=== PATIENT | female | born 1975 | race Caucasian/White ===

== ENCOUNTER → 2021-08-14 | Outpatient (CLI) | payer MEDICARE ==
[2021-08-14 14:38] LABS: Partial Thromboplastin Time 24.6 sec (22.0-30.0)
[2021-08-14 14:53] LABS: Appearance,Urine Clear (Clear); Bilirubin,Urine Negative (Negative); Blood,Urine Negative (Negative); Color,Urine Light Yellow; Glucose,Urine (UA) Negative (Negative); Ketones,Urine Negative (Negative); Leukocyte Esterase,Urine Negative (Negative); Nitrite,Urine Negative (Negative); PH, Urine 6.5 (5.0-8.0); Protein,Urine Negative (Negative); Specific Gravity,Urine 1.006 (1.001-1.035); Urobilinogen,Urine <2.0 mg/dL (<2.0)
[2021-08-14 18:50] LABS: INR 0.9 (<1.2); Prothrombin Time 9.9 sec (9.0-12.0)
[2021-08-14 19:09] LABS: HCT 40.3 % (37.2-46.3); HGB 12.8 g/dL (12.0-15.0); MCH 28.1 pg (27.0-32.0); MCHC 31.8 g/dL (32.0-37.0); MCV 88.6 fL (80.0-97.0); Mean Platelet Volume 10.1 fL (9.5-12.2); NRBC Per 100 WBC 0 /100 WBCS (0.0-0.0); Platelet Count 305 X 10*3/uL (140-440); RBC 4.55 X 10*6/uL (4.10-5.20); RDW 13.3 % (11.5-14.5); WBC 5.23 X 10*3/uL (4.50-10.00)
[2021-08-14 19:23] LABS: African American GFR (CKD) 127.2 (60.0-200.0); Albumin 4.5 g/dL (3.8-4.9); Albumin/Globulin Ratio 1.93 (1.60-3.17); Anion Gap 14.9 mmol/L (10.00-18.00); Blood Urea Nitrogen 11.6 mg/dL (9.0-27.0); Calcium 9.9 mg/dL (8.7-10.3); Carbon Dioxide 27.6 mmol/L (20.0-27.5); Globulin 2.3 g/dL (1.6-3.3); Non-African American GFR(CKD) 109.8 (60.0-200.0); Potassium 3.8 mmol/L (3.5-5.5); Total Bilirubin 0.4 mg/dL (0.30-1.20); Total Protein 6.9 g/dL (6.2-8.2)
== END | disposition home or self-care (01) ==
LOC: LABPAT 13:06
PROVIDERS: ATTEND Orthopaedic Surgery
DX: Z01.818 Encounter for other preprocedural examination (principal); M17.11 Unilateral primary osteoarthritis, right knee; R94.31 Abnormal electrocardiogram [ECG] [EKG]
CPT/HCPCS: 80053; 81003; 85027; 85610; 85730; 87070; 93005

== ENCOUNTER 2021-08-22 09:46 | Observation (INO) | payer MEDICARE, OTHER ==
[2021-08-16 14:59] VITALS: BMI 56.1
[~2021-08-22 09:46] MED LIST: ACETAMINOPHEN TAB 500 MG TAB PO PRN; GABAPENTIN 300 MG CAP PO PRN; LIDOCAINE 1% (10MG/ML) FOR IV START INTRADERMA PRN; MELOXICAM 7.5 MG TAB PO PRN; ONDANSETRON 4 MG/2 ML VIAL IVP ONE; TRANEXAMIC ACID IN NACL,ISO-OS 1,000 MG in SALINE 1 100ML.BAG IVPB PRN; ceFAZolin 3 GM in SODIUM CHLORIDE 0.9% 100 ML IVPB PRN
[2021-08-22] MEDS ORDERED: MAGNESIUM HYDROXIDE 2,400 MG/10 ML CUP PO PRN (10:46)
[2021-08-22] MEDS ORDERED: HYDROmorphone 0.5 MG/0.5 ML SYRINGE IVP PRN (10:46)
[2021-08-22] MEDS ORDERED: NALOXONE 0.4 MG/ML 1 ML VIAL IV PRN (10:46)
[2021-08-22] MEDS ORDERED: NA PHOS,M-B/NA PHOS,DI-BA 133 ML ENEMA RECTAL PRN (10:46)
[2021-08-22] MEDS ORDERED: ONDANSETRON 4 MG/2 ML VIAL IVP PRN (10:46)
[2021-08-22] MEDS ORDERED: bisacodyL 10 MG SUPP RECTAL PRN (10:46)
[2021-08-22] MEDS: LACTATED RINGERS 1,000 ML IV SCH (11:00)
[2021-08-22] MEDS ORDERED: SODIUM CHLORIDE 0.9% 1,000 ML IV SCH (11:00)
[2021-08-22] MEDS ORDERED: fentaNYL (PF) 50 MCG/ML 2 ML AMP IV ONE (11:20)
[2021-08-22] MEDS ORDERED: MIDAZOLAM 2 MG/2 ML VIAL IV ONE (11:20)
[2021-08-22] MEDS ORDERED: SODIUM CHLORIDE 0.9% (PF) 10 ML VIAL ONE (11:41)
[2021-08-22] MEDS ORDERED: TRANEXAMIC ACID IN NACL,ISO-OS 1,000 MG/100 ML BAG ONE (11:41)
[2021-08-22] MEDS ORDERED: ROPIVACAINE 5 MG/ML 30 ML VIAL ONE (11:41)
[2021-08-22] MEDS ORDERED: fentaNYL (PF) 50 MCG/ML 2 ML AMP ONE (11:41)
[2021-08-22] MEDS ORDERED: MIDAZOLAM 2 MG/2 ML VIAL ONE (11:41)
[2021-08-22] MEDS ORDERED: GLYCOPYRROLATE 0.2 MG/ML 2 ML VIAL ONE (11:41)
[2021-08-22] MEDS ORDERED: PROPOFOL 10 MG/ML 20 ML VIAL IV ONE (11:41)
[2021-08-22] MEDS ORDERED: PHENYLEPHRINE-0.9% NACL SYG 1,000 MCG/10 ML SYRINGE ONE (11:41)
--- NOTE | 2021-08-22 12:15 | P.ANPRN ---
Procedure Note - Anesthesia - Nerve Block Performed Right Adductor Canal Infusion Time Out Performed: Yes (1120) Date of Procedure: 08/22/21 Procedure Start Time: 11: Procedure Stop Time: : Location of Patient: PreOp Indication: Acute Post-Operative Pain, Requested by Surgeon Specifically requested for management of pain by DrEmilio: Peter Bateman Sedation Type: Sedate with meaningful contact maintained Preparation: Sterile Prep, Sterile Dressing Position: Supine Catheter Depth at Skin (cm): 10 Catheter: None Needle Types: Pajunk Needle Gauge: Other (see comment) (16g) Ultrasound used to visualize needle placement: Yes Ultrasound used to observe medication spread: Yes Injectate: 0.5% Ropivacaine (see comment for volume) (15cc + 5 cc nacl) Blood Aspirated: No Pain Paresthesia on Injection Noted: No Resistance on Injection: Normal Image Stored and Saved: Yes Events: Uneventful and Well Tolerated
--- NOTE | 2021-08-22 12:16 | P.ANPRN ---
Procedure Note - Anesthesia - Nerve Block Performed Right iPack Single Time Out Performed: Yes (1120) Date of Procedure: 08/22/21 Procedure Start Time: Procedure Stop Time: Location of Patient: PreOp Indication: Acute Post-Operative Pain, Requested by Surgeon Specifically requested for management of pain by DrEmilio: Peter Bateman Sedation Type: Sedate with meaningful contact maintained Preparation: Sterile Prep Position: Supine Catheter: None Needle Types: Pajunk Needle Gauge: 21 Ultrasound used to visualize needle placement: Yes Ultrasound used to observe medication spread: Yes Injectate: 0.5% Ropivacaine (see comment for volume) (15cc + 5cc nacl) Blood Aspirated: No Pain Paresthesia on Injection Noted: No Resistance on Injection: Normal Image Stored and Saved: Yes Events: Uneventful and Well Tolerated
[2021-08-22] MEDS ORDERED: ceFAZolin 1,000 MG in SODIUM CHLORIDE 0.9% 1,000 ML IRRIGATION ONE (12:19)
--- NOTE | 2021-08-22 13:14 | P.OP ---
Date of Procedure: 08/22/21 Preoperative Diagnosis: Severe osteoarthritis right knee Postoperative Diagnosis: Severe osteoarthritis right knee Procedure(s) Performed: Right total knee arthroplasty Implants: [employer] Journey II CR Oxinium cruciate retaining femoral component size 4, right [employer] Journey nonporous tibial baseplate size 2, right [employer] Journey II, XLPE CR articular insert, size 9 mm, Size 1-2, right [employer] Journey [place] II resurfacing patellar component, oval, 29 mm All components were cemented using Palacos R bone cement The articulation is Oxinium on polyethylene Anesthesia: spinal Surgeon: Peter Bateman Bushing And Broach Operator #1: Latonya Orozco Estimated Blood Loss (ml): 30 Pathology: other (Bone and cartilage) Condition: stable Disposition: PACU Indications for Procedure: After failure of conservative treatment we discussed the surgical and nonsurgical treatment options at length. Patient wishes to proceed with a total knee arthroplasty. Complications specific to this procedure were discussed at length, including but not limited to infection, bleeding, stiffness, and nerve injury. Covid-19 was also discussed at length with the patient, and they are aware of the current policies and procedures. The patient was given the option of delaying surgery, but they elect to proceed knowing these risks. Patient is aware of all these complications and informed consent was obtained Operative Findings: The operative findings are consistent with severe osteoarthritis of the right knee Description of Procedure: Patient was seen in the preoperative area and the consent was reviewed and the operative site was marked with a skin marker. The patient verified the procedure and the operative site. An adductor canal pain catheter and an iPACK block was placed by anesthesia in the preoperative area. The patient was then brought to the operating room and given preoperative antibiotics intravenously. A gram of transexamic acid was given intravenously. A spinal anesthetic was administered by the anesthesia department. A tourniquet was placed on the upper thigh and the lower extremity was prepped with chlorhexidine and draped in usual sterile fashion. A universal timeout was then performed which confirmed the patient's name, surgical site, ALLERGIES, and consent. The lower extremity was then exsanguinated and tourniquet was inflated to 250 mmHg. A standard anterior midline approach to the knee was performed. The skin and subcutaneous tissue were sharply dissected down to the patellar tendon. A medial parapatellar arthrotomy was then performed. The knee was then extended, the patellar was everted, and the knee was again flexed. The infra-patellar fat pad was removed in order to enhance exposure. The anterior horns of both menisci were excised, and a release was performed to the posterior medial aspect of the knee. On gross visual inspection, there was complete loss of articular cartilage in the medial and patellofemoral joint spaces. There was also significant cartilage damage in the lateral compartment. There were multiple periarticular osteophytes globally about the knee which were then removed with a Ronguer. The femoral canal was then opened with the 9.5 mm intramedullary drill. The 8 mm intramedullary yoana was then inserted into the femoral canal with the distal femoral cutting guide set for 5 of valgus. The distal femoral cutting block was then pinned in place. The intramedullary yoana was then removed, and the distal femur was then cut. The cutting block was then removed and the cut was checked for symmetry. The resected bone was then measured to confirm the appropriate distal femoral resection. Next, the sizing guide was then placed and set for 3 external rotation based off of the epicondylar axis and Whitesides line. Pins were then placed and the drill holes, and the femur was sized with the sizing stylus. The pins were then removed, and the sizing guide was then removed. The spikes of the femoral block was then placed into the predrilled holes, and malleted into place. Two 45 mm pins were then placed into the fixation holes on the cutting block. An brock wing was then used to ensure there would be no notching with the anterior cut. The anterior condyles were cut without notching. The anterior chord cut was then performed, followed by the posterior cut, posterior chamfer cut, and the anterior chamfer cut. The collateral ligaments were protected during the entire process. The cutting block was then removed. Any remaining bone and osteophytes were removed from the femur with a Ronguer. The femoral canal was plugged with autologous bone. Attention was then directed to the tibia. The remaining ACL was removed with a Ronguer, and the tibia was then gently subluxed forward with a large bent knee retractor. Any remaining menisci were excised. The posterior lateral corner was cauterized in order to coagulate the lateral geniculate artery. The extra medullary tibial cutting guide was then placed, set for the appropriate rotation, slope, and depth of resection. The proximal tibia cutting guide was then pinned in place. Proximal tibia was then cut and sized. The femoral trial was placed. A narrow saw blade was then used to remove the anterior intracondylar femoral bone. The CR notch trial was then placed. The tibial trial was placed with the appropriate-sized insert. The knee was able to fully extend and flex to 130 and was stable throughout all range of motion. The knee was then extended and the patella was everted. Patella was then measured, and then using an osteotomy guide, the patella was cut at the appropriate level. The patella was then measured and drilled and the patella trial was then placed. The knee was then taken through range of motion with the patella trial and the patella tracked normally using the no thumbs technique. The knee was then extended patella trial was then removed and the patella was everted. Knee was then flexed and lug holes were drilled through the femoral trial and the femoral trial was then removed. The tibial was then re-exposed, and the tibial broach guide was then pinned in place after it was set for the appropriate rotation to allow for the most coverage without overhang. The tibia was then reamed and broached. The cut surfaces of bone were then irrigated with pulsatile lavage. The knee was also irrigated with Irrisept solution. The components were then opened, the cement was mixed, and the components were then cemented in place. The cement was allowed to harden with the knee in full extension. After the cemented hardened, the tourniquet was released and hemostasis was obtained. A second gram of transexamic acid was given intravenously. The knee was again irrigated. The knee was again taken through range of motion and found to be stable throughout all range of motion of 0-130, and the patella tracked normally. The fascia was then closed with 0 Vicryl followed by #2 strata fix suture. The subcutaneous tissue was closed with 3-0 Vicryl and 3-0 strata fix. Exofin glue was used for the skin and placed with the knee in flexion. After the glue had dried, and Optafoam silver impregnated dressing was applied. The patient was then transferred to recovery room in stable condition. The insurance legal assistant ALISA Balderas was required due the complexity surgery and the need for a skilled surgical aides teacher. She assisted in positioning, draping, retraction, and closure of the wound.
[2021-08-22] MEDS ORDERED: ROPIVACAINE 0.2%-NS ON-Q PUMP 1,090 MG, EMPTY PAIN BALL 1 EACH MISCELLANE PRN (13:53)
[2021-08-22] MEDS: HYDROmorphone 0.5 MG/0.5 ML SYRINGE IVP PRN ×4 (14:02→18:52)
--- NOTE | 2021-08-22 14:58 | XR ---
EXAMINATION TYPE: XR knee limited RT DATE OF EXAM: 08/22/2021 COMPARISON: NONE TECHNIQUE: Two views submitted HISTORY: Post op FINDINGS: There is a prosthetic knee in near anatomic alignment. There is soft tissue edema and emphysema. IMPRESSION: 1. Postoperative change. Appears in near-anatomic alignment
[2021-08-22] MEDS: HYDROcodone/APAP 7.5-325MG 1 EACH TAB PO PRN ×2 (15:43→20:57)
--- NOTE | 2021-08-22 16:32 | P.CONS ---
History of Present Illness - Reason for Consult Consult date: 08/22/21 - History of Present Illness History of Presenting Illness: Patient is a very pleasant 46-year-old female with a past medical history of hypertension, neuropathy, severe asthma home oxygen dependent on 2 L with any exertion, history of lung cancer in a nonsmoker resulting in thoracotomy with left lower lobectomy now in remission, Raynaud's disease, and osteoarthritis. Patient is currently admitted under orthopedic surgery team and is status post right total knee arthroplasty completed by Dr. Bateman. We have been consulted for continued medical management throughout hospitalization. Upon assessment patient resting comfortably. Monitor revealing hypoxia with oxygen saturations around 85-88%. Patient reports home oxygen use only with exertion. She was placed on oxygen and increasing SpO2 greater than 90%. Patient is tolerating clear liquid diet and denies having any postoperative nausea or vomiting. Patient denies having any headache, lightheadedness, dizziness, chest pain, palpitations, shortness of breath, abdominal pain, nausea, vomiting, or experiencing any numbness/tingling/weakness in her extremities. She has not urinated in postoperative period as of yet, but is drinking clear liquids. Review of systems: Pertinent positives and negatives as discussed in HPI, a complete review of systems was performed and all other systems are negative. Physical exam: Vital signs reviewed and stable. General: Nontoxic, no distress and appears stated age. Derm: Skin warm and dry, normal coloration for ethnicity. Head: Atraumatic, normocephalic and symmetric. Eyes: EOMs intact, no lid lag, and anicteric sclera Mouth: no lip lesions, mucus membranes moist Cardiovascular: regular rate and rhythm with normal S1S2, no murmur, positive posterior tibial pulses bilaterally, and cap refill < 2 seconds. Lungs: Respirations even, regular, and unlabored on room air. Lungs CTA with the exception of diminished lung sounds to left mid and lower lung, no rhonchi, no rales, no wheezing, and no accessory muscle usage. Patient was found to have postoperative hypoxia with oxygen saturations dipping down to 85%. Patient placed on oxygen at this time increasing SpO2 greater than 92%. Abdominal: soft, nontender to palpation, no guarding, no appreciable organomegaly Ext: No gross muscle atrophy, no edema, no contractures. Postoperative dressing and ice pack in place to right knee, movement and sensation intact distally. Neuro: Speech clear, face symmetrical and CN II-XII grossly intact with no noted focal neuro deficits Psych: Alert and oriented to person, place, time, and situation. Appropriate and pleasant affect. Assessment and Plan of Care: Postoperative hypoxia requiring oxygen supplementation Severe asthma, not in exacerbation but home oxygen dependent on 2 L with exertion History of lung cancer and a nonsmoker status post left lower lobectomy -Oxygenation to be administered and titrated as needed to maintain SPO2 equal to or greater than 92% -Telemetry monitoring. -Monitor Pulse-oximetry -Duonebs as needed for SOB and/or wheezing -Incentive Spirometry, encourage use 10-15 times hourly while awake. Status post right total knee arthroplasty -Surgical procedure completed by Dr. Bateman on 08/22/21. -Management per primary admitting orthopedic surgery team including DVT prophylaxis, pain management, incisional care, weightbearing, and PT/OT. -Patient currently on DVT prophylaxis with aspirin 325 mg twice daily. -Encourage incentive spirometry Hypertension -Monitor vital signs and continue daily medication regimen with hydrochlorothiazide and metoprolol. Neuropathy -Continue daily medication regimen with Neurontin 600 mg twice a day. Raynaud's disease -Symptomatic and supportive care, warm blankets as needed. Thank you for allowing us to participate in the care of this pleasant patient. Do not hesitate to contact us with questions. Someone can be reached from the [facility] hospitalist group all hours of the day at [phone] or via [email or web address]. Past Medical History Past Medical History: Asthma, Cancer, Hypertension, Osteoarthritis (OA) Additional Past Medical History / Comment(s): hx migraines as child, sciatica, Raynaud's, heart murmer, "congestive heart", "mild leaky valve", left lower lung cancer- had chemo and radiation 01/2016-07/2016,-then got infection in chemo port-not sure what organism, hx skin cancer History of Any Multi-Drug Resistant Organisms: None Reported Past Surgical History: Section, Hernia Repair, Hysterectomy, Orthopedic Surgery, Tonsillectomy Additional Past Surgical History / Comment(s): hiatal hernia repair, left lower lobe of lung removed, bunionectomy left foot, tendon repair rt foot, C/S x 2, umbilcal hernia repair, hiatal hernia repair(thoracotomy), cyst removed from hands, left knee arthroscopy. Past Anesthesia/Blood Transfusion Reactions: No Reported Reaction Smoking Status: Never smoker - Past Family History Mother Family Medical History: Cancer Additional Family Medical History / Comment(s): melanoma Father Family Medical History: Cancer Additional Family Medical History / Comment(s): skin cancer Medications and Allergies Home Medications Medication Instructions Recorded Confirmed Type Gabapentin [Neurontin] 600 mg PO BID 03/17/14 08/16/21 History Montelukast [Singulair] 10 mg PO DAILY 03/17/14 08/16/21 History Acetaminophen [Tylenol 8 Hour] 1,950 mg PO TID 08/16/21 08/16/21 History Albuterol Inhaler [Ventolin Hfa 1 puff INHALATION DIRECTED PRN 08/16/21 08/16/21 History Inhaler] Albuterol Nebulized [Ventolin 2.5 mg INHALATION DIRECTED PRN 08/16/21 08/16/21 History Nebulized] Lidocaine Patch 1 patch TOPICAL DAILY 08/16/21 08/16/21 History Metoprolol Succinate [Toprol XL] 25 mg PO BID 08/16/21 08/16/21 History guaiFENesin [Mucinex] 600 mg PO HS 08/16/21 08/16/21 History hydroCHLOROthiazide [Hydrodiuril] 25 mg PO DAILY 08/16/21 08/16/21 History Aspirin 325 mg PO BID #60 tab 08/22/21 Rx HYDROcodone/APAP 7.5-325MG [[place] 1 - 2 tab PO Q6H PRN #32 tab 08/22/21 Rx 7.5-325] Ondansetron Odt [Zofran Odt] 1 tab PO Q8HR PRN #10 tab 08/22/21 Rx Sennosides [Senokot] 2 tab PO DAILY PRN #60 tablet 08/22/21 Rx Allergies Allergy/AdvReac Type Severity Reaction Status Date / Time ciprofloxacin [From Cipro] AdvReac severe Verified 08/16/21 14:37 muscle cramps,"paralyzed me" ciprofloxacin HCl AdvReac severe Verified 08/16/21 14:37 [From Cipro] muscle cramps"paralyzed me" iodine with tegaderm Allergy blisters Uncoded 08/16/21 15:00 Physical Exam Vitals: Vital Signs Temp Pulse Pulse Resp BP Pulse Ox 08/22/21 14:15 66 16 103/70 93 L 08/22/21 14:04 67 16 110/61 95 08/22/21 13:41 96.7 F L 77 20 109/68 100 08/22/21 11:35 72 16 127/78 100 08/22/21 10:29 97.2 F L 76 16 140/88 96 Intake and Output 08/22/21 08/22/21 08/22/21 06:59 14:59 22:59 Intake Total 701 100 Output Total 30 Balance 671 100 Intake: IV 701 100 Output: Estimated Blood Loss 30 Other: Weight 139.8 kg
[2021-08-22] MEDS: HYDROmorphone 1 MG/ML 1 ML SYRINGE IVP PRN ×2 (16:33→22:20)
[2021-08-22] MEDS: ASPIRIN 325 MG TAB PO SCH (20:56)
[2021-08-22] MEDS: GABAPENTIN 300 MG CAP PO SCH (20:56)
[2021-08-22] MEDS: ceFAZolin 3 GM in SODIUM CHLORIDE 0.9% 100 ML IVPB SCH (20:56)
[2021-08-22] MEDS: SENNOSIDES-DOCUSATE SODIUM 1 EACH TAB PO SCH (20:57)
[2021-08-22] MEDS: METOPROLOL SUCCINATE (ER) 25 MG TAB.ER.24H PO SCH (20:57)
[2021-08-22] MEDS: guaiFENesin 600 MG TABLET.ER PO SCH (20:57)
[2021-08-22] MEDS: ALBUTEROL NEBULIZED 2.5 MG/3 ML INHALATION PRN (23:47)
[2021-08-23] MEDS: HYDROcodone/APAP 7.5-325MG 1 EACH TAB PO PRN ×4 (01:30→20:05)
[2021-08-23] MEDS: HYDROmorphone 0.5 MG/0.5 ML SYRINGE IVP PRN (03:41)
[2021-08-23] MEDS ORDERED: PREGABALIN 100 MG CAP PO STA (03:56)
[2021-08-23] MEDS: ceFAZolin 3 GM in SODIUM CHLORIDE 0.9% 100 ML IVPB SCH (04:11)
[2021-08-23] MEDS: HYDROmorphone 1 MG/ML 1 ML SYRINGE IVP PRN ×4 (06:21→20:08)
[2021-08-23] MEDS: LACTATED RINGERS 1,000 ML IV SCH (07:38)
[2021-08-23] MEDS: METOPROLOL SUCCINATE (ER) 25 MG TAB.ER.24H PO SCH ×2 (07:44→20:05)
[2021-08-23] MEDS: GABAPENTIN 300 MG CAP PO SCH ×2 (07:44→20:04)
[2021-08-23] MEDS: ASPIRIN 325 MG TAB PO SCH ×2 (07:44→20:04)
[2021-08-23] MEDS: MONTELUKAST 10 MG TAB PO SCH (07:45)
--- NOTE | 2021-08-23 07:47 | P.PN ---
Subjective Progress Note Date: 08/23/21 Principal diagnosis: Primary osteoarthritis right knee. Status post total right knee arthroplasty. This is a 46-year-old female who is status post total right knee arthroplasty. Today is postoperative day #1. The patient is having issues with pain management. She is very weepy today on exam. She is complaining of right buttock and thigh pain. Vital signs and labs are stable. Objective - Vital Signs Vital signs: Vital Signs Temp 99.4 F 08/23/21 01:25 Pulse 87 08/23/21 01:25 Resp 18 08/23/21 01:25 BP 105/74 08/23/21 01:25 Pulse Ox 100 08/23/21 01:25 Intake & Output 08/22/21 08/23/21 08/23/21 18:59 06:59 18:59 Intake Total 801 Output Total 30 Balance 771 Weight 139.8 kg Intake: IV 801 Output: Estimated Blood Loss 30 Other: Voiding Method Toilet # Voids 2 # Bowel Movements 0 - Exam This is a 46-year-old female in no acute distress. She is slightly distraught over pain management issues. Exam of the right knee reveals that her dressing is clean, dry and intact. She has full foot and ankle motion without difficulty or pain. Neurovascular status to the lower extremity is intact. Assessment and Plan (1) Primary localized osteoarthritis of right knee Current Visit: Yes Status: Acute Code(s): M17.11 - UNILATERAL PRIMARY OSTEOARTHRITIS, RIGHT KNEE SNOMED Code(s): 422437641099528 (2) Status post total right knee replacement Current Visit: Yes Status: Acute Code(s): Z96.651 - PRESENCE OF RIGHT ARTIFICIAL KNEE JOINT SNOMED Code(s): 6234771468146 Plan: The clinical findings are discussed with the patient. We had a discussion regarding pain and expectations after knee replacement surgery. She is assured that pain is very common after knee surgery. She may also be having some radicular symptoms from her low back. We will see how she does with physical therapy today and plan discharge accordingly.
[2021-08-23] MEDS: hydroCHLOROthiazide 25 MG TAB PO SCH (07:48)
--- NOTE | 2021-08-23 09:45 | P.PN ---
Progress Note - Text Progress Note Date: 08/23/21 Patient was seen and evaluated at bedside. Status post postoperative day 1 for right total knee arthroplasty patient had adductor canal catheter for postop pain control. Patient rated pain at rest 5 out of 10 in severity. Patient describes pain is aching, throbbing type on the sides of the knee and back of the knee. Patient started walking with support. With activity patient pain levels are 6- 8 out of 10 in severity. With the help of oral pain medications pain levels are tolerable. Patient denied any weakness/ numbness in lower extremities. patient denied any fever, pain over the catheter site. Physical exam: Patient vital signs stable Patient is alert awake oriented 3 responding to all questions appropriately Examination of the catheter site showed dressing intact, no leaking fluid around the catheter, no redness, no tenderness over the catheter insertion area. plan: status post postoperative day 1 for right total knee arthroplasty with adductor canal catheter for pain control. Patient was discussed to continue the medication at the rate of 8 mL per hour until the pump is completely empty and instructed the patient how to discontinue the catheter
[2021-08-23 10:12] LABS: Basophils # (A) 0.02 X 10*3/uL (0.00-0.10); Basophils % (A) 0.3 %; Eosinophils # (A) 0.06 X 10*3/uL (0.04-0.35); HCT 35.2 % (37.2-46.3); Immature Grans, Automated 0.6 %; Lymphocytes # (A) 0.74 X 10*3/uL (0.90-5.00); Lymphocytes % (A) 11.9 %; MCH 27.9 pg (27.0-32.0); MCHC 31.3 g/dL (32.0-37.0); MCV 89.3 fL (80.0-97.0); Mean Platelet Volume 9.7 fL (9.5-12.2); Monocytes # (A) 0.66 X 10*3/uL (0.20-1.00); Monocytes % (A) 10.6 %; NRBC Per 100 WBC 0 /100 WBCS (0.0-0.0); Neutrophils % (A) 75.6 %; Platelet Count 259 X 10*3/uL (140-440); RBC 3.94 X 10*6/uL (4.10-5.20); RDW 13.3 % (11.5-14.5); WBC 6.22 X 10*3/uL (4.50-10.00)
[2021-08-23 10:36] LABS: Magnesium 1.9 mg/dL (1.5-2.4)
[2021-08-23 10:55] LABS: Albumin/Globulin Ratio 1.94 (1.60-3.17); Anion Gap 12.4 mmol/L (10.00-18.00); BUN/Creat Ratio 17.97 Ratio (12.00-20.00); Blood Urea Nitrogen 12.9 mg/dL (9.0-27.0); Calcium 8.8 mg/dL (8.7-10.3); Carbon Dioxide 22.5 mmol/L (20.0-27.5); Non-African American GFR(CKD) 100.1 (60.0-200.0); Potassium 3.9 mmol/L (3.5-5.5); Total Bilirubin 0.5 mg/dL (0.30-1.20)
[2021-08-23] MEDS ORDERED: ORPHENADRINE 30 MG/ML 2 ML VIAL IM STA (11:03)
--- NOTE | 2021-08-23 11:03 | P.PN ---
Subjective Progress Note Date: 08/23/21 Hospital course: Patient is a very pleasant 46-year-old female with a past medical history of hypertension, neuropathy, severe asthma home oxygen dependent on 2 L with any exertion, history of lung cancer in a nonsmoker resulting in thoracotomy with left lower lobectomy now in remission, Raynaud's disease, and osteoarthritis. Patient is currently admitted under orthopedic surgery team and is status post right total knee arthroplasty completed by Dr. Bateman. We have been consulted for continued medical management throughout hospitalization. Physical exam: Patient seen and fully evaluated at the bedside this morning. She reports uncontrolled pain in right gluteal region radiating laterally down hip and then down into anterior thigh ending just above the incision site. Patient is taking Neurontin 600 mg twice a day along with pain medication. Will administer a 1 time dose of Norflex and place order for K pad. Morning labs reviewed revealing expected mild postoperative blood loss anemia with hemoglobin stable at 11.0 and mild hyponatremia with sodium of 133 and patient tolerating oral intake will encourage oral hydration. Patient remains on 2 L O2 via nasal cannula with SpO2 of 94%. Incentive spirometry at bedside and patient encouraged to use 10-15 times hourly while awake. Patient denies having any headache, lightheadedness, dizziness, chest pain, palpitations, shortness of breath, nausea, or vomiting. Sensation and movement intact in right lower extremity. Vital signs reviewed and stable. General: Nontoxic, no distress and appears stated age. Derm: Skin warm and dry, normal coloration for ethnicity. Head: Atraumatic, normocephalic and symmetric. Eyes: EOMs intact, no lid lag, and anicteric sclera Mouth: no lip lesions, mucus membranes moist Cardiovascular: regular rate and rhythm with normal S1S2, no murmur, positive posterior tibial pulses bilaterally, and cap refill < 2 seconds. Lungs: Respirations even, regular, and unlabored on 2 L O2 with SpO2 of 94%. Lungs CTA with the exception of diminished lung sounds to left mid and lower lung, no rhonchi, no rales, no wheezing, and no accessory muscle usage. Abdominal: soft, nontender to palpation, no guarding, no appreciable organomegaly Ext: No gross muscle atrophy, no edema, no contractures. Postoperative dressing and ice pack in place to right knee, movement and sensation intact distally. Neuro: Speech clear, face symmetrical and CN II-XII grossly intact with no noted focal neuro deficits Psych: Alert and oriented to person, place, time, and situation. Appropriate and pleasant affect. Assessment and Plan of Care: Postoperative hypoxia requiring oxygen supplementation Acute postsurgical blood loss anemia, expected finding and stable with hemoglobin 11.0. Severe asthma, not in exacerbation but home oxygen dependent on 2 L with exert ion History of lung cancer and a nonsmoker status post left lower lobectomy -Oxygenation to be administered and titrated as needed to maintain SPO2 equal to or greater than 92% -Telemetry monitoring. -Monitor Pulse-oximetry -Duonebs as needed for SOB and/or wheezing -Incentive Spirometry, encourage use 10-15 times hourly while awake. Status post right total knee arthroplasty -Surgical procedure completed by Dr. Bateman on 08/22/21. -Management per primary admitting orthopedic surgery team including DVT prophylaxis, pain management, incisional care, weightbearing, and PT/OT. -Patient currently on DVT prophylaxis with aspirin 325 mg twice daily. -Encourage incentive spirometry Hypertension -Monitor vital signs and continue daily medication regimen with hydrochlorothiazide and metoprolol. Neuropathy -Continue daily medication regimen with Neurontin 600 mg twice a day. Raynaud's disease -Symptomatic and supportive care, warm blankets as needed. Thank you for allowing us to participate in the care of this pleasant patient. Do not hesitate to contact us with questions. Someone can be reached from the [facility] hospitalist group all hours of the day at [phone] or via [employer]. Objective - Vital Signs Vital signs: Vital Signs Temp 98.2 F 08/23/21 08:00 Pulse 91 08/23/21 08:00 Resp 18 08/23/21 08:00 BP 96/61 08/23/21 08:00 Pulse Ox 94 L 08/23/21 08:00 Intake & Output 08/22/21 08/23/21 08/23/21 18:59 06:59 18:59 Intake Total 801 Output Total 30 Balance 771 Weight 139.8 kg Intake: IV 801 Output: Estimated Blood Loss 30 Other: Voiding Method Toilet Toilet # Voids 2 # Bowel Movements 0 - Labs CBC & Chem 7: 08/23/21 08:01 08/23/21 07:05 Labs: Abnormal Lab Results - Last 24 Hours (Table) 08/23/21 08/23/21 Range/Units 07:05 08:01 RBC 3.94 L (4.10-5.20) X 10*6/uL Hgb 11.0 L (12.0-15.0) g/dL Hct 35.2 L (37.2-46.3) % MCHC 31.3 L (32.0-37.0) g/dL Lymphocytes # 0.74 L (0.90-5.00) X 10*3/uL Sodium 133 L (135-145) mmol/L Glucose 112 H (70-110) mg/dL Total Protein 6.0 L (6.2-8.2) g/dL
[2021-08-23] MEDS: hydrOXYzine pamoate 25 MG CAP PO PRN ×2 (12:45→20:05)
[2021-08-23] MEDS: SENNOSIDES-DOCUSATE SODIUM 1 EACH TAB PO SCH (20:04)
[2021-08-23] MEDS: guaiFENesin 600 MG TABLET.ER PO SCH (20:04)
[2021-08-23] MEDS: ALBUTEROL NEBULIZED 2.5 MG/3 ML INHALATION PRN (20:43)
[2021-08-24] MEDS: HYDROmorphone 1 MG/ML 1 ML SYRINGE IVP PRN ×3 (02:18→16:57)
[2021-08-24] MEDS: HYDROcodone/APAP 7.5-325MG 1 EACH TAB PO PRN ×3 (02:19→12:46)
[2021-08-24] MEDS: hydroCHLOROthiazide 25 MG TAB PO SCH (07:44)
[2021-08-24] MEDS: METOPROLOL SUCCINATE (ER) 25 MG TAB.ER.24H PO SCH ×2 (07:44→20:34)
[2021-08-24] MEDS: ASPIRIN 325 MG TAB PO SCH ×2 (07:44→20:34)
[2021-08-24] MEDS: MONTELUKAST 10 MG TAB PO SCH (07:44)
[2021-08-24] MEDS: GABAPENTIN 300 MG CAP PO SCH ×2 (07:45→20:32)
[2021-08-24] MEDS: ALBUTEROL NEBULIZED 2.5 MG/3 ML INHALATION PRN ×2 (09:00→16:09)
[2021-08-24] MEDS: LACTATED RINGERS 1,000 ML IV SCH (10:39)
[2021-08-24] MEDS ORDERED: DIAZEPAM 5 MG/ML 2 ML INJ IVP PRN (11:35)
--- NOTE | 2021-08-24 11:39 | P.PN ---
Subjective Progress Note Date: 08/24/21 This is a 46-year-old female who is status post right total knee arthroplasty. This is postoperative day #2 and patient is seen and evaluated at bedside today. Patient complains of pain in the right knee along with sciatic nerve pain. Patient states that she has had symptoms of sciatica in the past. Patient states that she has been able to get up and walk, but this is difficult because of the pain. Objective - Vital Signs Vital signs: Vital Signs Temp 98.2 F 08/24/21 07:28 Pulse 80 08/24/21 09:15 Resp 24 08/24/21 07:28 BP 112/73 08/24/21 07:28 Pulse Ox 97 08/24/21 07:28 Intake & Output 08/23/21 08/24/21 08/24/21 18:59 06:59 18:59 Intake Total 400 Output Total 600 Balance -200 Intake: Oral 400 Output: Urine 600 Other: Voiding Method Toilet Toilet Toilet # Voids 4 # Bowel Movements 0 - Exam Vital signs are stable. Patient is in no acute distress and is alert and orient ed 3. Calf is soft and nontender to palpation. Dressing is clean, dry, and intact. Patient has full foot and ankle motion without pain or difficulty. Sensation intact. Neurovascular status and circulatory status are intact. - Labs CBC & Chem 7: 08/23/21 08:01 08/23/21 07:05 Assessment and Plan (1) Primary localized osteoarthritis of right knee Current Visit: Yes Status: Acute Code(s): M17.11 - UNILATERAL PRIMARY OSTEOARTHRITIS, RIGHT KNEE SNOMED Code(s): 992519397508138 (2) Status post total right knee replacement Current Visit: Yes Status: Acute Code(s): Z96.651 - PRESENCE OF RIGHT ARTIFICIAL KNEE JOINT SNOMED Code(s): 3598365229453 Plan: #1 Continue with routine postoperative care and pain control, leave dressing in place for seven days. #2 Anticoagulation with aspirin. #3 Physical therapy and CPM today. #4 Appreciate input from medicine. #5 Anticipate discharge home with home care likely tomorrow.
[2021-08-24] MEDS ORDERED: ORPHENADRINE 30 MG/ML 2 ML VIAL IVP STA (12:32)
--- NOTE | 2021-08-24 15:49 | P.PN ---
Subjective Progress Note Date: 08/24/21 Hospital course: Patient is a very pleasant 46-year-old female with a past medical history of hypertension, neuropathy, severe asthma home oxygen dependent on 2 L with any exertion, history of lung cancer in a nonsmoker resulting in thoracotomy with left lower lobectomy now in remission, Raynaud's disease, and osteoarthritis. Patient is currently admitted under orthopedic surgery team and is status post right total knee arthroplasty completed by Dr. Bateman. We have been consulted for continued medical management throughout hospitalization. Physical exam: Patient seen and fully evaluated at the bedside this morning. Today patient is postop day 2. She reports continued shooting pain in right gluteal region radiating laterally down hip and then down into anterior thigh ending just above the incision site and request an additional dose of Norflex. Order placed. Patient does report K pad is significantly helping. Medically, patient is stable for discharge Pending clearance from orthopedic surgery team. Patient has been maintaining SpO2 of 97% on 2 L and 95% on room air. Patient is tolerating oral intake. No acute distress noted. Incentive spirometry at bedside and patient encouraged to use 10-15 times hourly while awake. Patient denies having any headache, lightheadedness, dizziness, chest pain, palpitations, shortness of breath, nausea, or vomiting. Sensation and movement remains intact in right lower extremity. Patient medically cleared for discharge once cleared by primary orthopedic surgery team. Vital signs reviewed and stable. General: Nontoxic, no distress and appears stated age. Derm: Skin warm and dry, normal coloration for ethnicity. Head: Atraumatic, normocephalic and symmetric. Eyes: EOMs intact, no lid lag, and anicteric sclera Mouth: no lip lesions, mucus membranes moist Cardiovascular: regular rate and rhythm with normal S1S2, no murmur, positive posterior tibial pulses bilaterally, and cap refill < 2 seconds. Lungs: Respirations even, regular, and unlabored on 2 L O2 with SpO2 of 94%. Lungs CTA with the exception of diminished lung sounds to left mid and lower lung, no rhonchi, no rales, no wheezing, and no accessory muscle usage. Abdominal: soft, nontender to palpation, no guarding, no appreciable organomegaly Ext: No gross muscle atrophy, no edema, no contractures. Postoperative dressing and ice pack in place to right knee, movement and sensation intact distally. Neuro: Speech clear, face symmetrical and CN II-XII grossly intact with no noted focal neuro deficits Psych: Alert and oriented to person, place, time, and situation. Appropriate and pleasant affect. Assessment and Plan of Care: Postoperative hypoxia requiring oxygen supplementation Acute postsurgical blood loss anemia, expected finding and stable with hemoglobin 11.0. Severe asthma, not in exacerbation but home oxygen dependent on 2 L with exertion History of lung cancer and a nonsmoker status post left lower lobectomy -Oxygenation to be administered and titrated as needed to maintain SPO2 equal to or greater than 92% -Telemetry monitoring. -Monitor Pulse-oximetry -Duonebs as needed for SOB and/or wheezing -Incentive Spirometry, encourage use 10-15 times hourly while awake. Status post right total knee arthroplasty -Surgical procedure completed by Dr. Bateman on 08/22/21. -Management per primary admitting orthopedic surgery team including DVT prophylaxis, pain management, incisional care, weightbearing, and PT/OT. -Patient currently on DVT prophylaxis with aspirin 325 mg twice daily. -Encourage incentive spirometry Hypertension -Monitor vital signs and continue daily medication regimen with hydrochlorothiazide and metoprolol. Neuropathy -Continue daily medication regimen with Neurontin 600 mg twice a day. Raynaud's disease -Symptomatic and supportive care, warm blankets as needed. Thank you for allowing us to participate in the care of this pleasant patient. Do not hesitate to contact us with questions. Someone can be reached from the [facility] hospitalist group all hours of the day at [phone] or via [employer]PT[employer] serve. Objective - Vital Signs Vital signs: Vital Signs Temp 98.2 F 08/24/21 07:28 Pulse 79 08/24/21 07:28 Resp 24 08/24/21 07:28 BP 112/73 08/24/21 07:28 Pulse Ox 97 08/24/21 07:28 Intake & Output 08/23/21 08/24/21 08/24/21 18:59 06:59 18:59 Intake Total 400 Output Total 600 Balance -200 Intake: Oral 400 Output: Urine 600 Other: Voiding Method Toilet Toilet # Voids 4 # Bowel Movements 0 - Labs CBC & Chem 7: 08/23/21 08:01 08/23/21 07:05 Labs: Abnormal Lab Results - Last 24 Hours (Table) 03/23/22 03/23/22 Range/Units 07:05 08:01 RBC 3.94 L (4.10-5.20) X 10*6/uL Hgb 11.0 L (12.0-15.0) g/dL Hct 35.2 L (37.2-46.3) % MCHC 31.3 L (32.0-37.0) g/dL Lymphocytes # 0.74 L (0.90-5.00) X 10*3/uL Sodium 133 L (135-145) mmol/L Glucose 112 H (70-110) mg/dL Total Protein 6.0 L (6.2-8.2) g/dL
[2021-08-24] MEDS: KETOROLAC 15 MG/ML 1 ML VIAL IVP PRN (20:30)
[2021-08-24] MEDS: guaiFENesin 600 MG TABLET.ER PO SCH (20:31)
[2021-08-24] MEDS: SENNOSIDES-DOCUSATE SODIUM 1 EACH TAB PO SCH (20:31)
[2021-08-25] MEDS: HYDROmorphone 1 MG/ML 1 ML SYRINGE IVP PRN ×2 (03:01→08:28)
[2021-08-25] MEDS: HYDROcodone/APAP 7.5-325MG 1 EACH TAB PO PRN ×2 (06:14→12:03)
[2021-08-25 07:56] VITALS: BP 112/75; RESP 18; TEMP 98
[2021-08-25] MEDS: hydroCHLOROthiazide 25 MG TAB PO SCH (08:17)
[2021-08-25] MEDS: METOPROLOL SUCCINATE (ER) 25 MG TAB.ER.24H PO SCH (08:17)
[2021-08-25] MEDS: MONTELUKAST 10 MG TAB PO SCH (08:17)
[2021-08-25] MEDS: ASPIRIN 325 MG TAB PO SCH (08:17)
[2021-08-25] MEDS: GABAPENTIN 300 MG CAP PO SCH (08:17)
[2021-08-25 08:44] LABS: Basophils % (A) 0 %; Eosinophils # (A) 0.2 k/uL (0-0.7); Eosinophils % (A) 4 %; HCT 31.6 % (34.0-46.0); HGB 10.3 gm/dL (11.4-16.0); Lymphocytes # (A) 0.4 k/uL (1.0-4.8); Lymphocytes % (A) 9 %; MCH 29.6 pg (25.0-35.0); MCHC 32.7 g/dL (31.0-37.0); MCV 90.5 fL (80.0-100.0); Mean Platelet Volume 7.3; Monocytes # (A) 0.3 k/uL (0-1.0); Monocytes % (A) 6 %; Neutrophils # (A) 3.9 k/uL (1.3-7.7); Neutrophils % (A) 79 %; Platelet Count 211 k/uL (150-450); RBC 3.49 m/uL (3.80-5.40); RDW 13.6 % (11.5-15.5); WBC 4.9 k/uL (3.8-10.6)
[2021-08-25] MEDS: ALBUTEROL NEBULIZED 2.5 MG/3 ML INHALATION PRN (09:14)
[2021-08-25 09:25] VITALS: PULSE 81
--- NOTE | 2021-08-25 09:41 | P.DS ---
Providers Date of admission: 08/23/21 08:13 Expected date of discharge: 08/25/21 Attending physician: Peter Bateman Consults: 08/22/21 10:46 Consult Physician Routine Consulting Provider: Vasiliy Castano Consult Reason/Comments: medical management Do you want consulting provider notified?: Yes Primary care physician: Tomás Hunt - Discharge Diagnosis(es) (1) Primary localized osteoarthritis of right knee Current Visit: Yes Status: Acute (2) Status post total right knee replacement Current Visit: Yes Status: Acute Hospital Course: This is a 46-year-old female with known history of degenerative arthritis of the right knee. The patient presented for evaluation as an outpatient. After discussion and consideration patient elects to proceed with total knee arthroplasty. The patient is seen preoperatively by Dr. Bateman and medically cleared for surgery by their primary care physician. Patient is admitted to [facility] on 08/22/2021 for total knee arthroplasty. The procedure is performed without complication or sequelae. The patient is doing well postoperatively. Labs and vital signs are stable on day of discharge. On day of discharge patient's knee incision is healing well. There is minimal erythema. There is no drainage noted at this time. There is minimal soft tissue swelling to the knee. Patient has full foot and ankle motion without difficulty or pain. Calf is soft and nontender to palpation. Neurovascular status to the right lower extremity is intact. Patient is discharged home in good condition. Please see med rec for accurate list of home medications. Plan - Discharge Summary Discharge Rx Participant: Yes New Discharge Prescriptions: New Aspirin 325 mg PO BID #60 tab HYDROcodone/APAP 7.5-325MG [Kyburz 7.5-325] 1 - 2 tab PO Q6H PRN #32 tab PRN Reason: Pain Ketorolac [Toradol] 10 mg PO Q6HR #8 tab Sennosides [Senokot] 2 tab PO DAILY PRN #60 tablet PRN Reason: Constipation Ondansetron Odt [Zofran Odt] 1 tab PO Q8HR PRN #10 tab PRN Reason: Nausea diazePAM [Valium] 5 mg PO BID #10 tab Continue Gabapentin [Neurontin] 600 mg PO BID Montelukast [Singulair] 10 mg PO DAILY Albuterol Nebulized [Ventolin Nebulized] 2.5 mg INHALATION DIRECTED PRN PRN Reason: sob Albuterol Inhaler [Ventolin Hfa Inhaler] 1 puff INHALATION DIRECTED PRN PRN Reason: sob Metoprolol Succinate [Toprol XL] 25 mg PO BID hydroCHLOROthiazide [Hydrodiuril] 25 mg PO DAILY Acetaminophen [Tylenol 8 Hour] 1,950 mg PO TID Lidocaine Patch 1 patch TOPICAL DAILY guaiFENesin [Mucinex] 600 mg PO HS Discharge Medication List Gabapentin [Neurontin] 600 mg PO BID 03/17/14 [History] Montelukast [Singulair] 10 mg PO DAILY 03/17/14 [History] Acetaminophen [Tylenol 8 Hour] 1,950 mg PO TID 08/16/21 [History] Albuterol Inhaler [Ventolin Hfa Inhaler] 1 puff INHALATION DIRECTED PRN 08/16/21 [History] Albuterol Nebulized [Ventolin Nebulized] 2.5 mg INHALATION DIRECTED PRN 08/16/21 [History] Lidocaine Patch 1 patch TOPICAL DAILY 08/16/21 [History] Metoprolol Succinate [Toprol XL] 25 mg PO BID 08/16/21 [History] guaiFENesin [Mucinex] 600 mg PO HS 08/16/21 [History] hydroCHLOROthiazide [Hydrodiuril] 25 mg PO DAILY 08/16/21 [History] Aspirin 325 mg PO BID #60 tab 08/22/21 [Rx] HYDROcodone/APAP 7.5-325MG [Kyburz 7.5-325] 1 - 2 tab PO Q6H PRN #32 tab 08/22/21 [Rx] Ondansetron Odt [Zofran Odt] 1 tab PO Q8HR PRN #10 tab 08/22/21 [Rx] Sennosides [Senokot] 2 tab PO DAILY PRN #60 tablet 08/22/21 [Rx] Ketorolac [Toradol] 10 mg PO Q6HR #8 tab 08/25/21 [Rx] diazePAM [Valium] 5 mg PO BID #10 tab 08/25/21 [Rx] Follow up Appointment(s)/Referral(s): [facility],Equipment [NON-STAFF] - As Needed (Continuous Passive Motion knee machine) [facility], [NON-STAFF] - As Needed Peter Bateman DO [Doctor of Osteopathic Medicine] - 09/04/21 1:50 pm Activity/Diet/Wound Care/Special Instructions: Activity: As tolerated. Take breaks as needed. Weightbearing as tolerated with a walker. CPM 5-6h daily as tolerated. Leave dressing intact. Dressing may be removed by home care nurse or by patient in 7 days. Then change dressing twice daily until follow up. May shower with initial dressing intact and after removal. If dressing become saturated, please remove. Diet: Heart healthy and carb consistent diet. Avoid salts, or foods with hidden salts such as canned or boxed foods and frozen dinners. Extra salt makes your heart work harder and traps the fluid in your body for longer. Special Instructions: Take all of your medications as directed and remember to keep all of your doctor's appointments and follow-up as needed. Recommend use of compression stockings daily until follow up to help prevent swelling and blood clots. May remove at night before sleeping. Please take aspirin 325mg twice daily for 30 days to prevent blood clots. Please follow up with [facility] and call with any questions or concerns, . Thank you for allowing us to participate in your care, it was truly a pleasure having you for our patient!!! Discharge Disposition: HOME WITH HOME HEALTH SERVICES
[2021-08-25] MEDS: hydrOXYzine pamoate 25 MG CAP PO PRN (15:12)
[2021-08-25] MEDS: KETOROLAC 15 MG/ML 1 ML VIAL IVP PRN (16:01)
== END 2021-08-25 16:39 | disposition home health service (06) ==
LOC: OR 09:46 → 4SSUR 13:41 → OR 08-23 07:22 → 4SSUR 08-23 08:13
PROVIDERS: ADMIT Orthopaedic Surgery; ATTEND Orthopaedic Surgery
DX: M17.11 Unilateral primary osteoarthritis, right knee (principal); D62 Acute posthemorrhagic anemia; J95.89 Other postprocedural complications and disorders of respiratory system, not elsewhere classified; R09.02 Hypoxemia; E87.1 Hypo-osmolality and hyponatremia; M21.161 Varus deformity, not elsewhere classified, right knee; I11.9 Hypertensive heart disease without heart failure; G62.9 Polyneuropathy, unspecified; M25.761 Osteophyte, right knee; I73.00 Raynaud's syndrome without gangrene; F32.A Depression, unspecified; M54.30 Sciatica, unspecified side; M23.611 Other spontaneous disruption of anterior cruciate ligament of right knee; R63.5 Abnormal weight gain; Z68.43 Body mass index [BMI] 50.0-59.9, adult; Z79.899 Other long term (current) drug therapy; Z88.1 Allergy status to other antibiotic agents; Z91.048 Other nonmedicinal substance allergy status; Z90.2 Acquired absence of lung [part of]; Z87.39 Personal history of other diseases of the musculoskeletal system and connective tissue; Z99.81 Dependence on supplemental oxygen; Z85.118 Personal history of other malignant neoplasm of bronchus and lung; Z92.3 Personal history of irradiation; Z92.21 Personal history of antineoplastic chemotherapy; Z97.3 Presence of spectacles and contact lenses; Z98.891 History of uterine scar from previous surgery; Z85.828 Personal history of other malignant neoplasm of skin; Z90.710 Acquired absence of both cervix and uterus; Z86.69 Personal history of other diseases of the nervous system and sense organs; Z86.19 Personal history of other infectious and parasitic diseases; Z98.890 Other specified postprocedural states; Z83.3 Family history of diabetes mellitus; Z80.8 Family history of malignant neoplasm of other organs or systems; Z82.49 Family history of ischemic heart disease and other diseases of the circulatory system
CPT/HCPCS: 27447; 94640 ×5; 94760; 97116; 97530; 97161; 64999; 64448; 76942; 80053; 83735; 85025 ×2; 88300; 73560; G0378 ×3; C1713; C1776; J2250; J2360 ×2; J3360; J0690 ×3; J2405; J3010; J1170 ×6; J2795 ×2; J1885 ×2; J2370; J2704; J1790